=== PATIENT | female | born 1960 | race Caucasian/White ===

== ENCOUNTER 2018-09-07 11:57 | Day surgery (SDC) | payer OTHER ==
[~2018-09-07 11:57] MED LIST: INS70/30PN SC
== END 2018-09-07 22:56 | disposition home or self-care (01) ==
LOC: WOUND 11:57
DX: K06.1 Gingival enlargement (principal); G89.29 Other chronic pain; R68.84 Jaw pain; E10.9 Type 1 diabetes mellitus without complications; Z97.2 Presence of dental prosthetic device (complete) (partial); Z88.6 Allergy status to analgesic agent; Z88.8 Allergy status to other drugs, medicaments and biological substances; Z87.891 Personal history of nicotine dependence
CPT/HCPCS: G0463

== ENCOUNTER 2020-12-25 11:28 | Day surgery (SDC) | payer OTHER ==
[~2020-12-25] VITALS: Ht 162.6 cm; Wt 45.6 kg
[2020-12-25] MEDS ORDERED: NOVOLOG FL100 UNIT/3 SC (12:38)
--- NOTE | 2020-12-25 15:40 | NUR ---
12/25/20 7870 DAVID PANIAGUA REPORTED THAT PT DID NOT HAVE SEDATION.
== END 2020-12-25 14:10 | disposition home or self-care (01) ==
LOC: ORSCSDS 11:28
PROVIDERS: Ophthalmology
PROC: 08RJ3JZ Replacement of Right Lens with Synthetic Substitute, Percutaneous Approach (ICD-10-PCS; principal; 2020-12-25 13:00)
DX: H25.11 Age-related nuclear cataract, right eye (principal); I10 Essential (primary) hypertension; Z79.4 Long term (current) use of insulin; Z87.891 Personal history of nicotine dependence
CPT/HCPCS: 82947; J2001; J2250; J3010; J3301; J7040; J7120; V2632

== ENCOUNTER 2021-01-15 11:46 | Day surgery (SDC) | payer OTHER ==
[~2021-01-15] VITALS: Ht 162.6 cm; Wt 45.7 kg
[~2021-01-15 11:46] MED LIST changes: +NOVOLOG FL100 UNIT/3; +NOVOLOG FL100 UNIT/3 SC
--- NOTE | 2021-01-15 12:51 | NUR ---
01/15/21 1251 Alpa Andrew TETRACAINE DROP TO LEFT EYE AT 1242. PLEDGET TO LEFT EYE AT 1243.
--- NOTE | 2021-01-15 15:37 | NUR ---
01/15/21 1537 Linda Bradley LATE ENTRY--RECEIVED BRIEF REPORT FROM DAVINA HERNANDEZ AND ASKED TO TAKE OVER THIS PATIENT AND GIVE DISCHARGE INSTRUCTIONS. VITALS HAD BEEN TAKEN AND IV WAS DC'D BY DAVINA HERNANDEZ. PATIENT WAS DISCHARGED IN STABLE CONDITION
== END 2021-01-15 15:30 | disposition home or self-care (01) ==
LOC: ORSCSDS 11:46
PROVIDERS: Ophthalmology
PROC: 08RK3JZ Replacement of Left Lens with Synthetic Substitute, Percutaneous Approach (ICD-10-PCS; principal; 2021-01-15 13:00)
DX: H25.12 Age-related nuclear cataract, left eye (principal); I10 Essential (primary) hypertension; Z79.4 Long term (current) use of insulin
CPT/HCPCS: J2001; J3301; J7040; V2632

== ENCOUNTER 2021-12-17 14:13 | Inpatient (IN) | payer OTHER ==
[~2021-12-17] VITALS: Ht 162.6 cm; Wt 45.2 kg
[~2021-12-17 14:13] MED LIST changes: -NOVOLOG FL100 UNIT/3
[2021-12-17 14:59] LABS: BASOPHILS ABSOLUTE AUTO 0.06 K/mm3 (0.00-0.23); BASOPHILS PERCENT AUTO 1 % (0-2); EOSINOPHILS PERCENT AUTO 0 % (0-6); Hematocrit 43.8 % (33.0-51.0); Hemoglobin 15.3 g/dL (11.5-16.0); IMMATURE GRAN ABSOLUTE AUTO 0.01 K/mm3 (0.00-0.10); IMMATURE GRAN PERCENT AUTO 0 % (0-1); LYMPHOCYTES ABSOLUTE AUTO 1.52 K/mm3 (0.84-5.20); LYMPHOCYTES PERCENT AUTO 30 % (21-46); MONOCYTES ABSOLUTE AUTO 0.82 K/mm3 (0.16-1.47); MONOCYTES PERCENT AUTO 16 % (4-13); Mean Corpuscular HGB Conc 34.9 g/dL (31.5-36.5); Mean Corpuscular Volume 100 fL (80-100); Mean Platelet Volume 10.8 fL (9.1-12.4); NEUTROPHILS ABSOLUTE AUTO 2.71 K/mm3 (1.96-9.15); NEUTROPHILS PERCENT AUTO 53 % (41-73); Platelet Count 183 K/mm3 (150-400); RDW Coefficient Variation 12.1 % (11.7-14.2); RDW Standard Deviation 45.1 fL (35.1-46.3); Red Blood Cell Count 4.37 M/mm3 (3.80-5.20); White Blood Cell Count 5.12 K/mm3 (4.00-11.30)
[2021-12-17 15:39] LABS: Albumin, Blood 3.4 g/dL (3.4-5.0); Bilirubin, Total 0.5 mg/dL (0.1-1.0); Bun/Creatinine Ratio 23.8 (12.0-20.0); Calcium, Blood 10.2 mg/dL (8.5-10.1); Creatinine, Blood 0.5 mg/dL (0.40-1.00); Globulin, Blood 3.4 g/dL (2.2-4.0); Magnesium, Blood 2.8 mg/dL (1.6-2.4); Potassium, Blood 4.7 mmol/L (3.5-5.5); Total Protein, Blood 6.8 g/dL (6.4-8.2)
[2021-12-17 16:27] LABS: Influenza A, PCR NEGATIVE (NEGATIVE); Influenza B, PCR NEGATIVE (NEGATIVE); Resp Syncytial Virus, PCR NEGATIVE (NEGATIVE); SARS-Cov-2 (COVID-19) PCR, MMC NEGATIVE (NEGATIVE)
[2021-12-17] MEDS ORDERED: MONDOXYNE NL100 MG PO (19:46)
--- NOTE | 2021-12-18 03:15 | NUR ---
SHIFT SUMMARY; SHAWN ARRIVED TO UNIT APPROX 0730 FROM ER. SHE WAS AO X 4 ON ARRIVAL. SPOUSE AND DAUGHTERS ACCOMPANIED THIS PATIENT. THIS RN WENT OVER PATIENTS MEDICATIONS WITH HER AND PER PATIENT SHE ONLY TAKES INSULIN AT THIS TIME. SHE WAS INSISTANT ON USING HER INSULIN FOR HER DIABETES TYPE I. WAS NOTIFIED AND HE SAID OK TO ORDER MISC MED OK FOR HER TO USE HER OWN INSULIN. HOWEVER WHEN SPEAKING WITH THIS PATIENT SHE HAS NO SPECIFIC DOSING FOR HER INSULIN. PER PATIENT SHE TAKES WHAT SHE FEELS THAT SHE NEEDS. SHE SAYS ITS USUALLY AROUND 3 OR 4 UNITS. SHE TAKES HER BLOOD SUGAR LEVELS 10 TO 30 TIMES PER DAY. PATIENT IS INSISTANT ON USING HER NOVOLOG FLEX PEN AND DOES NOT WANT TO USE THE HOSPITAL EQUIVALENT. PER LION IN THE PHARMACY HE IS NOT COMFORTABLE WITH HER USING "WHAT SHE FEELS SHE NEEDS" HE WOULD ONLY OK IF PATIENT HAS A SET DOSE SCHEDULE. DECISION TO SPEAK WITH MD AND PATIENT IN THE AM TO TRY AND COME TO A CONSENSUS ON HER DOSING AND TO ASK TO USE HOSPITAL HUMALIN PEN PATIENT HAS BEEN USING SAME NEEDLE ON HER NOVOLOG FOR THE ENTIRE TIME SHE HAS HAD THIS PEN. PER PATIENT SHE ONLY GETS NEW NEEDLE WHEN SHE GETS A NEW PEN. SHE HAS NOT HAD ANY DIABETIC EDUCATION OR DIETARY CONSULTATIONS. CONSULT IS PLACED FOR NUTRITION TO COME SPEAK WITH HER. PATIENT IS MEDICATED X 1 WITH 25MCG FENTANYL IVP WITH GOOD RESULTS SHE IS CURRENTLY RESTING COMFORTABLY EYES CLOSED BREATING EVEN AND UNLABORED. SHE REMAINS NPO FOR SURGERY IN THE AM.
--- NOTE | 2021-12-18 09:33 | NUR ---
PHYSICIAN CONTACT PATIENT REQUESTING TO USE OWN INSULIN PEN, HOWEVER PHARMACY CONCERNED DUE TO PATIENT NOT USING SCALE, JUST DOSING UNITS SHE FEELS SHE NEEDS. TALKED WITH DR. FORRESTER ABOUT IT. PER DR. FORRESTER, PATIENT OKAY TO USE OWN INSULIN PEN AND WE WILL MONITOR SUGAR LEVELS. FINGERPRINT CLERK CONSULT IN TO TALK WITH PATIENT ABOUT DIET, INSULIN AMD DIABETES.
[2021-12-18 12:00] LABS: Source, Urine Foley catheter
[2021-12-18 12:18] LABS: Appearance, Urine Clear (Clear); Bilirubin, Urine Neg (Neg); Blood, Urine 2+ (Neg); Color, Urine Yellow (P-Yellow); Glucose Qualitative, Urine 4+ (Neg); Ketones, Urine 2+ (Neg); Leukocyte Esterase, Urine Neg (Neg); Nitrite, Urine Neg (Neg); Protein, Urine Neg (Neg); Specific Gravity, Urine 1.015 (1.003-1.022); Urobilinogen, Urine NORM (Normal)
[2021-12-18 12:35] LABS: Bacteria Few /hpf; Squamous Epithelial Cells Rare /hpf (Few); White Blood Cells, Urine Not Seen /hpf (0-5)
--- NOTE | 2021-12-18 15:26 | NUR ---
12/18/21 1526 Kat Silveira PATIENT HAD JAUREGUI IN PLACE WHEN ENTERING OR. DRAINING CLEAR YELLOW URINE.
--- NOTE | 2021-12-18 15:53 | NUR ---
TRANSFER PATIENT TAKEN FOR SURGERY AT 1330. PATIENT TRANSFERRING TO SURGICAL FLOOR AFTER. BELONGINGS SENT TO NEW ROOM. JAUREGUI PATENT AND DRAINING TO GRAVITY. FAMILY AT BEDSIDE, FOLLOWED PATIENT TO SURGERY. AWAITING CALL FROM RECIEVING NURSE FOR REPORT.
--- NOTE | 2021-12-18 18:12 | NUR ---
POST OP: REPORT RECEIVED FROM MUTUEL MACHINE OPERATOR . PT TO UNIT AT ABOUT 1715. PT IS A/O, NOTED TACHYCARDIA IN 100'S. PT DENIES CP, ANXEITY. PT RATES PAIN 3/10. DRESSING AT L HIP CDI PT ABLE TO WIGGLE TOES, PEDEL PULSE +2, DENIES N/T. LUNG SOUNDS ARE CLEAR. PT AT BEDSIDE. THERE ARE NO SYMPTOMS OF WITHDRAWAL NOTED AT THIS TIME.
--- NOTE | 2021-12-18 18:15 | NUR ---
REPORT ALSO RECEIVED FROM MEDICAL FLOOR RN SHORTLY AFTER PT'S ARRIVAL TO UNIT. PT'S BELONGINGS BROUGHT DOWN FROM MEDICAL ROOM.
--- NOTE | 2021-12-18 19:27 | NUR ---
PT CBG 260 TONIGHT. HIGH SS INSULIN CALLED FOR PT TO RECEIVE 9 UNITS REGULAR INSULIN. PT DID NOT WANT TO TAKE 9 UNITS AND WAS FEARFUL THAT SHE WOULD BE HYPOGLYCEMIC. EDUCATION GIVEN ABOUT THE IMPORTANCE OF BLOOD SUGAR CONTROL AFTER SURGERY AND THE RISKS OF POOR CONTROL OF BLOOD SUGAR. PT AGREED TO TAKE 6 UNITS INSTEAD. PT DID NOT WANT DINNER. DR. SANTOS MADE AWARE OF THIS WELL ON COMING DAVINA DU. WILL CTM
--- NOTE | 2021-12-19 03:53 | NUR ---
CALLED HOSPITALIST DUE TO PT HAVING BP OF 75/53. AT THAT TIME HE ORDERED A 500ML BOLUS, WILL ADMINISTER ONCE PHARMACY VERIFIES THE ORDER.
[2021-12-19 04:13] LABS: Hematocrit 32.9 % (33.0-51.0); Hemoglobin 10.9 g/dL (11.5-16.0); Mean Corpuscular HGB 34.5 pg (26.0-34.0); Mean Corpuscular HGB Conc 33.1 g/dL (31.5-36.5); Mean Corpuscular Volume 104 fL (80-100); Mean Platelet Volume 11.4 fL (9.1-12.4); Platelet Count 144 K/mm3 (150-400); RDW Coefficient Variation 12.2 % (11.7-14.2); RDW Standard Deviation 47.1 fL (35.1-46.3); Red Blood Cell Count 3.16 M/mm3 (3.80-5.20); White Blood Cell Count 11.16 K/mm3 (4.00-11.30)
--- NOTE | 2021-12-19 04:29 | NUR ---
500 ML BOLUS OF NS GIVEN PER MD ORDER. BP RECHECKED, 130/78. WILL CONTINUE TO MONITOR. PT REPORTS PAIN IN ABDOMEN, WARM BLANKET GIVEN.
--- NOTE | 2021-12-19 04:30 | NUR ---
SHIFT SUMMARY A/O X4- POD1 L TOTAL HIP DUE TO GROUND LEVEL FALL. AQUACEL IN PLACE, C/D/I. JAUREGUI IN PLACE, DARK YELLOW URINE DRAINING. PT DRINKING FLUIDS. PAIN IN ABDOMEN THIS AM, BUT NO PAIN MEDICATIONS GIVEN DUE TO LOW BP- WARM BLANKET APPLIED. WILL CONTINUE TO MONITOR AND REPORT TO ONCOMING RN.
[2021-12-19 04:54] LABS: Albumin, Blood 2.4 g/dL (3.4-5.0); Albumin/Globulin Ratio 0.9 (0.8-1.8); Bilirubin, Total 0.9 mg/dL (0.1-1.0); Bun/Creatinine Ratio 36.3 (12.0-20.0); Calcium, Blood 8.3 mg/dL (8.5-10.1); Creatinine, Blood 0.66 mg/dL (0.40-1.00); Globulin, Blood 2.6 g/dL (2.2-4.0); Potassium, Blood 4.2 mmol/L (3.5-5.5); Thyroid Stimulating Hormone 3.14 uIU/mL (0.360-4.800)
--- NOTE | 2021-12-19 19:01 | NUR ---
SHIFT SUMMARY PT POD #1 FOR L TOTAL HIP. AQUACEL DRESSING CDI. PT BEGAN THE SHIFT A/O X4 BUT IRRITABLE. THE SHIFT WENT ON HER MENTAL STATUS CHANGED AND SHE BECAME MORE CONFUSED. PT CRAWLED OUT OF THE CHAIR AND ONTO THE FLOOR AND FOUND CALLING OUT (SEE POST FALL ASSESSMENT). PT ADMITTED TO DRINKING ALCOHOL AND PUT ON CIWA PROTOCOL. WILL POSSIBLY DC HOME WITH HOME HEALTH WHEN ABLE.
[2021-12-20 04:18] LABS: Hematocrit 28.2 % (33.0-51.0); Mean Corpuscular HGB 35.7 pg (26.0-34.0); Mean Corpuscular HGB Conc 35.5 g/dL (31.5-36.5); Mean Corpuscular Volume 101 fL (80-100); Mean Platelet Volume 11.3 fL (9.1-12.4); Platelet Count 151 K/mm3 (150-400); RDW Coefficient Variation 11.8 % (11.7-14.2); RDW Standard Deviation 43.3 fL (35.1-46.3)
[2021-12-20 04:20] LABS: White Blood Cell Count 11.31 K/mm3 (4.00-11.30)
[2021-12-20 04:48] LABS: Albumin, Blood 2.4 g/dL (3.4-5.0); Albumin/Globulin Ratio 0.8 (0.8-1.8); Bilirubin, Total 0.9 mg/dL (0.1-1.0); Bun/Creatinine Ratio 37.1 (12.0-20.0); Calcium, Blood 8.1 mg/dL (8.5-10.1); Creatinine, Blood 0.49 mg/dL (0.40-1.00); Globulin, Blood 2.9 g/dL (2.2-4.0); Percent Saturation 9.3 % (15.0-50.0); Total Protein, Blood 5.3 g/dL (6.4-8.2)
--- NOTE | 2021-12-20 05:21 | NUR ---
SHIFT SUMMARY AT THE BEGINING OF THE SHIFT THE PATIENT WAS VERY CONFUSED AND TRYING TO GET OUT OF BED, BED ALARM WAS ON. LIBRIUM GIVEN AT THAT TIME, CIWA SCORE OF 16 AT 1926, HOSPITALIST CALLED AT THAT TIME FOR MORE MEDICATION TO CONTROL ALCOHOL WITHDRAWL. ORDER OBTAINED, SEE EMAR. PT CIWA SCORE REMAINED 8 AND UNDER THROUGHOUT THE NIGHT. LIBRIUM GIVEN AT APPROX 0430 THIS AM. PO PAIN MEDICATION GIVEN FOR PAIN. NO N/V REPORTED, TOLERATING PO INTAKE. A/O X2-3- DISORIENTED AT TIMES, PT STATES SHE HAS BEEN "WALKING AROUND THE HOUSE ALL NIGHT." THOUGH SHE HAS BEEN SLEEPING ON AND OFF AND BED ALARM HAS BEEN ON FOR PT SAFETY. PT CALLED SPOUSE SEVERAL TIMES AT APPROX 0230 AND HE CAME TO HER ROOM AT APPROX 0330. PT REFUSING SCD'S WELL POLAR PACK AND TEDS THROUGHOUT SHIFT. AMBULATED W/ MAX 2 ASSIST, FWW, AND GB TO BSC. BLADDER SCANNED AT APPROX 0000 WITH RESULT OF 426ML IN BLADDER, AT THAT TIME PT UP TO BSC AND VOIDED 150ML. PT BACK TO BED AND GOT BACK UP TO COMMODE AT 0430, PT VOIDED 400ML AT THAT TIME, AT BEDSIDE. WILL CONTINUE TO MONITOR, CALL LIGHT IN REACH.
--- NOTE | 2021-12-20 18:24 | NUR ---
SHIFT SUMMARY PT IS POD#2 FROM L HIP REPAIR. PAIN HAS BEEN DIFFICULT TO MANAGE WITH PO PAIN MEDICATION, PO PAIN MEDICATION INCREASED AND TYLENOL ADDED IN ADDITION TO OXYCODONE. PT REPORTS HER PAIN IS A 1/10 AT REST AFTER INCREASING PAIN MEDICATION. PT ATTEMPTED TO WORK WITH THERAPY BUT WAS ONLY ABLE TO SIT AT THE EDGE OF THE BED. PT WAS HAVING SOME URINARY RETENTION, BLADDER SCAN SHOWED 893ML IN HER BLADDER AND PT DECLINED THE URGE TO VOID. PT DECLINED TO GET TO THE BSC TO VOID, SHE USED THE BEDPAN, SHE WAS ABLE TO EMPTY APPROXIMATELY 600ML FROM HER BLADDER. PT WAS EDUCATED ABOUT THE IMPORTANCE OF GETTING OOB AND ENCOURAGED TO USE THE BSC INSTEAD OF THE BEDPAN AND ALSO TO SIT UP TO THE CHAIR. PT IS RECEPTIVE TO EDUCATION AT TIMES. PT'S CIWA SCORE HAS BEEN AN 8 THIS SHIFT, MANAGED WITH LIBRIUM. WILL CONTINUE TO MONITOR UNTIL REPORT TO ISMAEL RN.
--- NOTE | 2021-12-20 18:37 | NUR ---
PT DECLINED BEDSIDE REPORT.
--- NOTE | 2021-12-21 04:06 | NUR ---
SHIFT SUMMARY A/O X4 THROUGHOUT SHIFT- APPEARS TO HAVE MUCH LESS CONFUSION THIS SHIFT. POD3 L TOTAL HIP- AQUACEL C/D/I. UP TO BSC W/ 2 PERSON ASSIST, FWW, AND GB. TOLERATING PO INTAKE, VOIDING WELL THOUGH PT WAS UNABLE TO VOID AT BEGINING OF SHIFT AND BLADDER SCAN WAS PERFORMED, SHE WAS ABLE TO URINATE THIS MORNING 650ML. NO BOWEL MOVEMENT AT THIS TIME, BOWEL CARE ON BOARD. REPORTS PASSING FLATUS. PT REPORTS PAIN BETTER CONTROLLED THIS SHIFT. VITAL SIGNS STABLE. WILL CONTINUE TO MONITOR AND REPORT TO ONCOMING RN.
[2021-12-21 06:17] LABS: Hematocrit 26.4 % (33.0-51.0); Hemoglobin 9.1 g/dL (11.5-16.0); Mean Corpuscular HGB Conc 34.5 g/dL (31.5-36.5); Mean Corpuscular Volume 102 fL (80-100); Mean Platelet Volume 10.7 fL (9.1-12.4); Platelet Count 192 K/mm3 (150-400); RDW Coefficient Variation 11.7 % (11.7-14.2); RDW Standard Deviation 43.6 fL (35.1-46.3); White Blood Cell Count 9.81 K/mm3 (4.00-11.30)
[2021-12-21 06:38] LABS: Albumin, Blood 2.1 g/dL (3.4-5.0); Albumin/Globulin Ratio 0.7 (0.8-1.8); Bilirubin, Total 0.8 mg/dL (0.1-1.0); Bun/Creatinine Ratio 30.2 (12.0-20.0); Calcium, Blood 8.1 mg/dL (8.5-10.1); Creatinine, Blood 0.4 mg/dL (0.40-1.00); Globulin, Blood 2.9 g/dL (2.2-4.0); Potassium, Blood 4.1 mmol/L (3.5-5.5)
--- NOTE | 2021-12-22 04:20 | NUR ---
0420 HRS: DISCUSSED HAVING THE PATIENT ATTEMPT TO VOID AND USING BLADDER SCANNER. THE PT BECAME SLIGHTLY IRRITABLE AND REFUSED AT THIS TIME. WILL DISCUSS/TRY AGAIN WITH PATIENT LATER IN THE SHIFT.
--- NOTE | 2021-12-22 04:59 | NUR ---
SHIFT SUMMARY: PT IS A&0X4. PAIN WAS WELL MANAGED T/O THE SHIFT PER EMAR ORDERS. REPORTED MINIMAL PAIN T/O THE NIGHT. PT WAS ENCOURAGED TO ATTEMPT TO URINATE DURING THE SHIFT BUT EXPRESSED THAT SHE WOULD LET STAFF KNOW WHEN SHE NEEDED TO URINATE. DISCUSSED BLADDER SCANNING THE PATIENT AND SHE REFUSED AT THAT TIME. PT X1 AQUACEL REMAINS IN PLACE ON THE L HIP WITH VERY LIGHT EXUDATE. DENIED NAUSEA T/O THE SHIFT. PT SNACKED ON CRACKERS AND TOLERATED PO FLUIDS WELL. PT CURRENTLY RESTING AND CALL LIGHT IS WITHIN REACH.
--- NOTE | 2021-12-22 06:12 | NUR ---
0612 HRS: DISCUSSED ATTEMPTING TO USE THE BATHROOM WITH THE PT. SHE DENIED STATING THAT SHE IS TOO PAINFUL. PT WAS MEDICATED FOR PAIN PER EMAR. PT STATES SHE PREFERS TO WAIT UNTIL LATER TO ATTEMPT TO URINATE. BLADDER SCAN PERFORMED AND SHOWED 200. PT ENCOURAGED TO DRINK PO FLUIDS AND LET STAFF KNOW WHEN SHE NEEDS TO URINATE.
[2021-12-22] MEDS ORDERED: FOLI1 PO (11:05)
[2021-12-22] MEDS ORDERED: Percocet 5-3251 EACH PO (11:05)
[2021-12-22] MEDS ORDERED: B-1100 M1 PO (11:05)
[2021-12-22] MEDS ORDERED: ENOX30I SC (11:06)
[2021-12-22] MEDS ORDERED: METO25 PO (11:07)
[2021-12-22] MEDS ORDERED: CIPR500 PO (11:45)
[2021-12-22 17:10] LABS: Influenza A, PCR NEGATIVE (NEGATIVE); Influenza B, PCR NEGATIVE (NEGATIVE); Resp Syncytial Virus, PCR NEGATIVE (NEGATIVE); SARS-Cov-2 (COVID-19) PCR, MMC NEGATIVE (NEGATIVE)
--- NOTE | 2021-12-22 18:05 | NUR ---
DISCHARGE TO SNF VIA . SCRIPT SENT w/ PACKET. PT IS EMOTIONAL TODAY, BUT PLEASANT & THANKFUL. RARELY VOIDS LARGE AMOUNTS. PAIN REASONABLY CONTROLLED BUT IS REPORTING SOME DIZZINESS FROM PAIN MEDS. AQUACEL WNL TO L HIP. HEAVY ASSIST FOR TRANSFERS; PIVOT ONLY. CALLING REPORT TO .
== END 2021-12-22 17:55 | disposition home or self-care (01) | DRG 521 ==
LOC: ER 14:13 → SURS 16:28 → MEDS 16:28 → SURS 12-18 15:44
PROVIDERS: Emergency Medicine; Internal Medicine; Orthopaedic Surgery; ADMIT Internal Medicine
PROC: 0SRB0JZ Replacement of Left Hip Joint with Synthetic Substitute, Open Approach (ICD-10-PCS; 2021-12-18)
PROC: 0QS704Z Reposition Left Upper Femur with Internal Fixation Device, Open Approach (ICD-10-PCS; principal; 2021-12-18 14:00)
DX: S72.012A Unspecified intracapsular fracture of left femur, initial encounter for closed fracture (principal); E43 Unspecified severe protein-calorie malnutrition; F10.239 Alcohol dependence with withdrawal, unspecified; E87.1 Hypo-osmolality and hyponatremia; N39.0 Urinary tract infection, site not specified; Z68.1 Body mass index [BMI] 19.9 or less, adult; D64.9 Anemia, unspecified; R82.71 Bacteriuria; E86.0 Dehydration; W01.0XXA Fall on same level from slipping, tripping and stumbling without subsequent striking against object, initial encounter; Z20.822 Contact with and (suspected) exposure to COVID-19; K70.10 Alcoholic hepatitis without ascites; E10.65 Type 1 diabetes mellitus with hyperglycemia; K72.90 Hepatic failure, unspecified without coma; B96.20 Unspecified Escherichia coli [E. coli] as the cause of diseases classified elsewhere; B95.2 Enterococcus as the cause of diseases classified elsewhere; Z79.4 Long term (current) use of insulin; Z87.820 Personal history of traumatic brain injury; Z98.890 Other specified postprocedural states; Z88.8 Allergy status to other drugs, medicaments and biological substances
CPT/HCPCS: 0241U; 36415; 51702; 72170; 73502; 80053; 81001; 82728; 82947; 83036; 83540; 83550; 83735; 83880; 84443; 84484; 85025; 85027; 87077; 87086; 87186; 93005; 93010; 96374; 97110; 97116; 97161; 97530; 99285-25; A9270; C1713; C1776; J0171; J0690; J0735; J1100; J1650; J1815; J1885; J2250; J2270; J2370; J2405; J2704; J2765; J2795; J3010; J3370; J7040; J7120

== ENCOUNTER 2022-01-25 20:43 | Inpatient (IN) | payer OTHER ==
[~2022-01-25] VITALS: Ht 162.6 cm; Wt 44.8 kg
[~2022-01-25 20:43] MED LIST changes: +B-1100 M1 PO; +CIPR500 PO; +ENOX30I SC; +FOLI1 PO; +METO25 PO; +MONDOXYNE NL100 MG PO; +Percocet 5-3251 EACH PO
[2022-01-25 21:27] LABS: BASOPHILS ABSOLUTE AUTO 0.06 K/mm3 (0.00-0.23); BASOPHILS PERCENT AUTO 1 % (0-2); EOSINOPHILS ABSOLUTE AUTO 0.09 K/mm3 (0.00-0.68); EOSINOPHILS PERCENT AUTO 2 % (0-6); Hematocrit 35.7 % (33.0-51.0); Hemoglobin 11.8 g/dL (11.5-16.0); IMMATURE GRAN ABSOLUTE AUTO 0.03 K/mm3 (0.00-0.10); IMMATURE GRAN PERCENT AUTO 1 % (0-1); LYMPHOCYTES PERCENT AUTO 36 % (21-46); MONOCYTES ABSOLUTE AUTO 1.06 K/mm3 (0.16-1.47); MONOCYTES PERCENT AUTO 18 % (4-13); Mean Corpuscular HGB 33.9 pg (26.0-34.0); Mean Corpuscular HGB Conc 33.1 g/dL (31.5-36.5); Mean Corpuscular Volume 103 fL (80-100); Mean Platelet Volume 10.5 fL (9.1-12.4); NEUTROPHILS ABSOLUTE AUTO 2.51 K/mm3 (1.96-9.15); NEUTROPHILS PERCENT AUTO 43 % (41-73); Platelet Count 324 K/mm3 (150-400); RDW Coefficient Variation 13.5 % (11.7-14.2); RDW Standard Deviation 51.5 fL (35.1-46.3); Red Blood Cell Count 3.48 M/mm3 (3.80-5.20); White Blood Cell Count 5.85 K/mm3 (4.00-11.30)
[2022-01-25 21:34] LABS: Anion Gap 6 mmol/L (6-16); Blood Urea Nitrogen 12 mg/dL (8-24); Bun/Creatinine Ratio 29.8 (12.0-20.0); CO2, Blood 25 mmol/L (21-32); Calcium, Blood 8.3 mg/dL (8.5-10.1); Chloride, Blood 104 mmol/L (98-108); Glomerular Filtration Rate 113 (60-); Glucose, Blood 385 mg/dL (70-99); Magnesium, Blood 1.8 mg/dL (1.6-2.4); Potassium, Blood 3.4 mmol/L (3.5-5.5); Sodium, Blood 135 mmol/L (136-145)
[2022-01-25 22:10] LABS: Ethanol (Alcohol), Blood, Med <3 mg/dL
--- NOTE | 2022-01-26 01:03 | NUR ---
PT REQUESTS TO TAKE OWN BLOOD SUGAR WITH HOME BLOOD GLUCOSE MONITOR. 0047 RESULT WAS 208. PT ADMINISTERED 1 UNIT HOME NOVOLOG INSULIN.
--- NOTE | 2022-01-26 01:13 | NUR ---
ADMIT NEW ER ADMIT THIS SHIFT FOR A SCHEDULED LEFT FEMUR REVISION SURGERY IN THE MORNING. PT NPO AND EDUCATED ON CBG Q6H PER ORDERS. PT REPORTS SHE WANTS TO CHECK HER OWN BLOOD SUGARS AND ADMINISTER HER OWN INSULIN. VSS. PT REPORTS PAIN TOLERABLE AT THIS TIME. PT INDEPENDENTLY TRANSFERRED HERSELF FROM ER [facility] TO BED AND HAS PERSONAL W/C AT BEDSIDE. PT WANTS TO BE INDEP TO BSC. EDUCATED ON FALL RISK AND CALL FOR ASSISTANCE WHEN NEEDING TO GET OOB. PT VERB AN UNDERSTANDING. ORIENTED TO ROOM AND CALL LIGHT.
--- NOTE | 2022-01-26 04:26 | NUR ---
SHIFT SUMMARY NO ACUTE CHANGES SINCE ADMIT. NPO SINCE ARRIVAL. 1 PAIN PILL FOR PAIN MANAGEMENT. IV SL. PT INDEP TRANSFERS SELF FROM BED TO BSC TO VOID. ENCOURAGING TO USE CALL LIGHT WHEN OOB AND EDUCATING PT ABOUT FALL RISK. PLAN FOR PT TO GO TO OR THIS MORNING. CALL LIGHT WITHIN REACH.
--- NOTE | 2022-01-26 04:39 | NUR ---
PT TOOK OWN BLOOD SUGAR AT 0255 AND RESULT WAS 143.
[2022-01-26 05:11] LABS: BASOPHILS ABSOLUTE AUTO 0.06 K/mm3 (0.00-0.23); BASOPHILS PERCENT AUTO 1 % (0-2); EOSINOPHILS ABSOLUTE AUTO 0.22 K/mm3 (0.00-0.68); EOSINOPHILS PERCENT AUTO 3 % (0-6); Hematocrit 36.5 % (33.0-51.0); Hemoglobin 11.7 g/dL (11.5-16.0); IMMATURE GRAN ABSOLUTE AUTO 0.01 K/mm3 (0.00-0.10); IMMATURE GRAN PERCENT AUTO 0 % (0-1); LYMPHOCYTES ABSOLUTE AUTO 3.02 K/mm3 (0.84-5.20); LYMPHOCYTES PERCENT AUTO 46 % (21-46); MONOCYTES ABSOLUTE AUTO 1.12 K/mm3 (0.16-1.47); MONOCYTES PERCENT AUTO 17 % (4-13); Mean Corpuscular HGB Conc 32.1 g/dL (31.5-36.5); Mean Corpuscular Volume 103 fL (80-100); Mean Platelet Volume 10.6 fL (9.1-12.4); NEUTROPHILS ABSOLUTE AUTO 2.17 K/mm3 (1.96-9.15); NEUTROPHILS PERCENT AUTO 33 % (41-73); NRBC ABSOLUTE 0.04 K/mm3 (0.00-0.02); NRBC Auto 0.6 /100 WBC (0.0-0.2); Platelet Count 344 K/mm3 (150-400); RDW Coefficient Variation 13.6 % (11.7-14.2); RDW Standard Deviation 51.6 fL (35.1-46.3); Red Blood Cell Count 3.55 M/mm3 (3.80-5.20)
[2022-01-26 06:01] LABS: Bun/Creatinine Ratio 27.3 (12.0-20.0); Calcium, Blood 8.8 mg/dL (8.5-10.1); Creatinine, Blood 0.4 mg/dL (0.40-1.00); Potassium, Blood 2.9 mmol/L (3.5-5.5)
--- NOTE | 2022-01-26 06:15 | NUR ---
PT TO DAY SURGERY AT THIS TIME.
--- NOTE | 2022-01-26 11:10 | NUR ---
THE PATIENT WAS BROUGHT TO DAY SURGERY FOR HER PROCEDURE.
--- NOTE | 2022-01-26 13:42 | NUR ---
01/26/22 1342 Rodri Josue BLOOD SUGAR TAKEN AT 1337 BY ORD.DXS USING SECOND TOE ON RIGHT FOOT. 246.
--- NOTE | 2022-01-26 15:45 | NUR ---
PT OUT OF CONTROL. MOANING, CRYING BUT NO TEARS, RESTLESS, NON-COOPERATIVE. PT TREATED FOR PAIN. ANGRY WITH THIS RN FOR TYPING. CONSULTED WITH DR. PLATA ACP, VO FOR 2MG IV VERSED X1 FOR ANXIETY. PT MEDICATED AT 1540. SHORTLY AFTER, PT DESATURATED AND OBSTRUCTED. O2 10L NON-REBREATHER ON AND JAW THRUST PROVIDED. SATS BACK UP TO 100%. PT NOW SLEEPING. VSS. WILL CONTINUE TO MONITOR.
--- NOTE | 2022-01-26 16:01 | NUR ---
2200 OF LR GIVEN TOTAL FROM OR AND PACU, BLOOD LOSS ESTIMATED TO BE 400, NO JAUREGUI, BLADDER SCANNED @1540, 290ML SHOWN
--- NOTE | 2022-01-26 18:36 | NUR ---
SHIFT SUMMARY PATIENT ALERT, ANXIOUS, AND PARANOID THROUGHOUT SHIFT. WENT FOR LEFT HIP REVISION WITH DR SANTOS. RETURNED TO ROOM AT 1630 MOANING IN PAIN, ANXIOUS. MEDICATED WITH DILAUDID AND PHENERGAN AND PATIENT IS NOW SLEEPING. CONT BIOX ON, 2L O2 VIA NC, SATS AT 100%. AQUACEL TO LEFT HIP C/D/I. IV FLUID RUNNING. SPOUSE PRESENT DURING MOST OF DAY. PLAN TO START PHYSICAL THERAPY TOMORROW.
--- NOTE | 2022-01-26 21:14 | NUR ---
PT EASILY AWAKENED FROM SLEEPING, BUT IS CONFUSED, AGITATED, AND UNCOOPERATIVE WITH SOME CARE. VS TAKEN, BUT PT UNABLE TO KEEP ARM STILL DURING BP. PT VERBALIZED SHE NEEDED TO VOID. OFFERED TO PLACE PT ON BED CERDA SINCE PT UNABLE TO MOBILIZE LEFT LEG POST OP. PT REFUSED AND TOLD STAFF TO "GET OUT OF MY ROOM". PT STILL ATTEMPTING TO GET OOB, BUT UNABLE TO MOVE THAT LEFT LEG. OFFERRED TO HELP PT TO BEDSIDE COMMODE. EDUCATED PT ON SAFETY OF GETTING OUT OF BED WITH STAFF ASSISTANCE AND PROTECTING THAT POST OP LEFT LEG. PT REFUSED AND CONTINUED TO YELL AND USE ABUSIVE LANGUAGE TOWARDS STAFF. PT THINKS WE ARE HER FAMILY MEMBERS AND IS UNAWARE SHE IS AT THE HOSPITAL. REORIENTED PT. PT DID ALLOW THIS RN TO CHECK CBG AND ADMINISTER INSULIN PER ORDERS. PT FELL ASLEEP QUICKLY AFTER THAT. SIDE RAILS UP X3, BED IN LOW POSITION, AND BED ALARM IN PLACE FOR SAFETY. CALL LIGHT WITHIN REACH. WILL CONT TO MONITOR. ATTEMPTED TO CALL PT'S X2 TO UPDATE ON MENTAL STATUS/BEHAVIOR AND TO SEE IF TALKING TO HER ON THE PHONE WOULD CALM HER DOWN. DID NOT ANSWER PHONE CALL.
--- NOTE | 2022-01-26 21:48 | NUR ---
PT BED ALARM WENT OFF. UPON ENTERING ROOM, PT SITTING ON SIDE OF BED TAKING HER GOWN OFF AND ALMOST PULLING OUT HER IV. WAS ABLE TO ASSIST PT IN TAKING GOWN OFF AND DISCONNECTING IV WITHOUT IT BEING PULLED OUT. PT DEMANDING STAFF TO GET HER PAJAMAS ON. PT WAS ABLE TO INDEP PUT SHIRT ON. PT THEN STOOD UP WITHOUT GAIT BELT ON, NONSKID SOCKS ON, AND WITHOUT WALKER. INSTRUCTED PT TO SIT BACK ON BED FOR SAFETY REASONS AND RISK TO FALL. PT REFUSED AND CONTINUED TO GET SELF ONTO BEDSIDE COMMODE. PT ABLE TO VOID. PT YELLING AT STAFF TO GET HER UNDERWEAR ON AND PAJAMA PANTS ON. THIS RN ASSISTED PT IN DRESSING. PT THEN STOOD UP AGAINST INSTRUCTIONS TO WAIT FOR WALKER, GAIT BELT, AND SOCKS. PT WEAK AND UNSTEADY ON HER FEET AND THIS RN TOLD HER TO SIT BACK DOWN ONTO THE CLOSED COMMODE. PT VERY UPSET AND VERBALIZED SHE WANTS HER PHONE TO CALL HER . PHONE HANDED TO PT AND PT THREW IT ON HER BED. PT YELLING THAT STAFF NOT ALLOWING HER TO GET BACK INTO THE BED "HER WAY". CONTINUED TO EDUCATE PT ON POST OP PRECAUTIONS AND SAFETY/FALL RISK PRECAUTIONS. PT INTERRUPTING AND CALLING STAFF "IDIOTS" AND USING FOUL LANGUAGE. PT REFUSED TO GET BACK INTO BED AND WILL NOT LEAVE THE BSC. THIS RN STATED THAT STAFF WILL STAY IN ROOM WITH HER TO KEEP HER SAFE FROM FALLING AND UNTIL SHE IS SAFELY BACK TO BED. PT APPEARS TO BE PARANOID AND IS CONFUSED STATING SHE IS AT HER HOME AMD WE ARE WANTING TO "KILL HER". CONTINUING TO REORIENT PT. THIS RN AT BEDSIDE WITH PT.
--- NOTE | 2022-01-26 22:58 | NUR ---
HOSPITALIST NOTIFED OF AGITATED BEHAVIOR. ORDER FOR KERLINE PLACED. 3 STAFF MEMBERS TO ASSIST WITH MEDICATION ADMINISTRATION. PT BACK TO BED AND REPOSITIONED SUPINE. OFFERED EXTRA PILLOWS AND BLANKETS AND PT DECLINED. SIDE RAILS UP X3, BED IN LOW POSITION, TAB ALARM IN PLACE.
--- NOTE | 2022-01-27 06:08 | NUR ---
PT SPOUSE CAME IN AT APPROX 0430. UPDATED SPOUSE ON PT MENTATION/BEHAVIOR/ AND TREATMENT PLAN FOR REST OF SHIFT. SPOUSE VERY APOLOGETIC. PT VERY PARANOID/AGITATED/ANGRY WHEN IN ROOM EDUCATING PT ON MEDICATIONS AND TREATMENT PLAN. CONTINUED TO REFUSE MEDICATIONS AND CARE. THIS RN LEFT ROOM AND SPOUSE CAME OUT TO TELL ME SHE NEEDED TO USE THE BEDSIDE COMMODE. UPON ENTERING ROOM, PT VERBALIZED SHE HAD VOIDED IN HER PANTS AND IN THE BED. THIS RN EDUCATED PT THAT WE NEEDED TO CLEAN HER UP AND GET HER INTO CLEAN CLOTHES WITH NEW LINENS TO PREVENT INCISION INFECTION. PT REFUSED TO GET OOB AND SPOUSE WAS ABLE TO CONVINCE HER TO COOPERATE. 2 MAX ASSIST TO BSC. SOILED CLOTHING REMOVED FROM PT AND SKIN CLEANSED. AQUACEL DRESSING TO LEFT HIP NOTED TO BE SATURATED WITH MODERATE RED DRAINAGE. NEW DRESSING APPLIED. PT DRESSED WITH CLEAN CLOTHES AND LINENS CHANGED. PT BACK TO BED AND REPOSITIONED. PT VERBALIZED PAIN. THIS RN OFFERED PAIN MEDICATIONS. PT AGREED. THIS RN SHOWED PT MEDICATION PACKAGING AND LABELS BEFORE ADMINISTRATION. PT WAS THEN COOPERATIVE WITH OBTAINING VS. SPOUSE LEFT TO GO BACK HOME. OFFERED PT A SNACK AND BROUGHT HER A SANDWICH AND APPLESAUCE WHICH APPEARED TO MAKE HER HAPPY. PT DENIED ANY OTHER NEEDS. CALL LIGHT WITHIN REACH.
--- NOTE | 2022-01-27 06:28 | NUR ---
PT REFUSED MORNING LABS.
[2022-01-27 08:07] LABS: BASOPHILS ABSOLUTE AUTO 0.04 K/mm3 (0.00-0.23); BASOPHILS PERCENT AUTO 0 % (0-2); EOSINOPHILS PERCENT AUTO 0 % (0-6); IMMATURE GRAN ABSOLUTE AUTO 0.06 K/mm3 (0.00-0.10); IMMATURE GRAN PERCENT AUTO 0 % (0-1); LYMPHOCYTES ABSOLUTE AUTO 2.12 K/mm3 (0.84-5.20); LYMPHOCYTES PERCENT AUTO 14 % (21-46); MONOCYTES ABSOLUTE AUTO 1.69 K/mm3 (0.16-1.47); MONOCYTES PERCENT AUTO 11 % (4-13); Mean Corpuscular HGB 34.6 pg (26.0-34.0); Mean Corpuscular HGB Conc 33.3 g/dL (31.5-36.5); Mean Corpuscular Volume 104 fL (80-100); Mean Platelet Volume 10.6 fL (9.1-12.4); NEUTROPHILS ABSOLUTE AUTO 10.91 K/mm3 (1.96-9.15); NEUTROPHILS PERCENT AUTO 74 % (41-73); Platelet Count 299 K/mm3 (150-400); RDW Coefficient Variation 13.8 % (11.7-14.2); RDW Standard Deviation 52.5 fL (35.1-46.3); White Blood Cell Count 14.82 K/mm3 (4.00-11.30)
[2022-01-27 08:31] LABS: Albumin, Blood 2.4 g/dL (3.4-5.0); Bun/Creatinine Ratio 28.5 (12.0-20.0); Calcium, Blood 8.5 mg/dL (8.5-10.1); Creatinine, Blood 0.53 mg/dL (0.40-1.00); Potassium, Blood 3.4 mmol/L (3.5-5.5); Prealbumin, Blood 10.3 mg/dL (20.0-40.0)
[2022-01-27] MEDS ORDERED: ASPI81CH PO (09:46)
--- NOTE | 2022-01-27 11:05 | NUR ---
DISCHARGE SUMMARY PT UNCOOPERATIVE WITH CARE AT MOST TIMES. PT AGREEABLE TO WORK WITH PHYSICAL AND OCCUPATIONAL THERAPY AND THEY WERE AGREEABLE THAT HOME WITH HOME HEALTH IS BEST. PT NOT COOPERATIVE WITH FALL PRECAUTIONS AND MEDICATIONS. PT DISCHARGED HOME WITH .
== END 2022-01-27 10:35 | disposition home health service (06) | DRG 466 ==
LOC: ER 20:43 → SURS 22:25
PROVIDERS: Emergency Medicine; Orthopaedic Surgery; ADMIT Internal Medicine
PROC: 0SPS0JZ Removal of Synthetic Substitute from Left Hip Joint, Femoral Surface, Open Approach (ICD-10-PCS; 2022-01-26)
PROC: 0QS704Z Reposition Left Upper Femur with Internal Fixation Device, Open Approach (ICD-10-PCS; 2022-01-26)
PROC: 0SRS0JZ Replacement of Left Hip Joint, Femoral Surface with Synthetic Substitute, Open Approach (ICD-10-PCS; principal; 2022-01-26 12:30)
DX: S72.002A Fracture of unspecified part of neck of left femur, initial encounter for closed fracture (principal); E43 Unspecified severe protein-calorie malnutrition; M97.02XA Periprosthetic fracture around internal prosthetic left hip joint, initial encounter; Z68.1 Body mass index [BMI] 19.9 or less, adult; E87.6 Hypokalemia; E10.65 Type 1 diabetes mellitus with hyperglycemia; F10.11 Alcohol abuse, in remission; M81.0 Age-related osteoporosis without current pathological fracture; Z96.642 Presence of left artificial hip joint; F60.9 Personality disorder, unspecified; W19.XXXA Unspecified fall, initial encounter; Z79.4 Long term (current) use of insulin; Z98.890 Other specified postprocedural states; Z88.8 Allergy status to other drugs, medicaments and biological substances; Z87.820 Personal history of traumatic brain injury; Z79.891 Long term (current) use of opiate analgesic
CPT/HCPCS: 36415; 72170; 80048; 82040; 82947; 83735; 84134; 84238; 85025; 93005; 93010; 94762; 97110; 97116; 97162; 97166; 97530; 97535; 99285-25; A9270; C1776; G0480; J0171; J0690; J0735; J1100; J1170; J1815; J1885; J2250; J2370; J2405; J2550; J2704; J2795; J3010; J3480; J3486; J7050; J7120

== ENCOUNTER 2022-02-11 07:04 | Observation (INO) | payer OTHER ==
[~2022-02-11 07:04] MED LIST changes: +ASPI81CH PO
[2022-02-11 08:11] LABS: BASOPHILS ABSOLUTE AUTO 0.07 K/mm3 (0.00-0.23); BASOPHILS PERCENT AUTO 1 % (0-2); EOSINOPHILS ABSOLUTE AUTO 0.15 K/mm3 (0.00-0.68); EOSINOPHILS PERCENT AUTO 3 % (0-6); Hematocrit 30.2 % (33.0-51.0); Hemoglobin 10.2 g/dL (11.5-16.0); IMMATURE GRAN ABSOLUTE AUTO 0.01 K/mm3 (0.00-0.10); IMMATURE GRAN PERCENT AUTO 0 % (0-1); LYMPHOCYTES ABSOLUTE AUTO 1.48 K/mm3 (0.84-5.20); LYMPHOCYTES PERCENT AUTO 30 % (21-46); MONOCYTES PERCENT AUTO 27 % (4-13); Mean Corpuscular HGB 33.2 pg (26.0-34.0); Mean Corpuscular HGB Conc 33.8 g/dL (31.5-36.5); Mean Corpuscular Volume 98 fL (80-100); Mean Platelet Volume 9.8 fL (9.1-12.4); NEUTROPHILS ABSOLUTE AUTO 1.87 K/mm3 (1.96-9.15); NEUTROPHILS PERCENT AUTO 38 % (41-73); Platelet Count 448 K/mm3 (150-400); RDW Coefficient Variation 15.4 % (11.7-14.2); RDW Standard Deviation 55.8 fL (35.1-46.3); Red Blood Cell Count 3.07 M/mm3 (3.80-5.20); White Blood Cell Count 4.88 K/mm3 (4.00-11.30)
[2022-02-11 08:36] LABS: C-REACTIVE PROTEIN, EXT RANGE 6.43 mg/dL (0.000-0.300)
[2022-02-11 08:38] LABS: Albumin, Blood 2.4 g/dL (3.4-5.0); Albumin/Globulin Ratio 0.7 (0.8-1.8); Bilirubin, Total 0.4 mg/dL (0.1-1.0); Bun/Creatinine Ratio 32.7 (12.0-20.0); Calcium, Blood 8.7 mg/dL (8.5-10.1); Creatinine, Blood 0.4 mg/dL (0.40-1.00); Globulin, Blood 3.3 g/dL (2.2-4.0); Potassium, Blood 3.2 mmol/L (3.5-5.5); Total Protein, Blood 5.7 g/dL (6.4-8.2)
--- NOTE | 2022-02-11 09:45 | NUR ---
02/11/22 0945 Rodri Josue PREOPERATIVE VANCOMYCIN STARTED AT 0918
--- NOTE | 2022-02-11 13:33 | NUR ---
DISCHARGE SUMMARY PT ARRIVED TO THE FLOOR FROM PACU A/OX4, RESPONDING VERBALLY AND APPROPRIATELY, HEMOVAC IN PLACE ON L HIP FROM OR, PT AND EDUCATED ON HOW TO MANAGE IT OVER THE WEEKED AND A FOLLOW UP ON TUESDAY, DRESSING IN PLACE BUT BECAME LOOSE AND PULLED AWAY ON THE MEDIAL ANTERIOR SIDE. DRESSING REPLACED WITH COMPRESSION TAPE AND FRESH GAUZE, HEMOVAC EMPTIED BUT ONLY HAD ABOUT 10 ML SS DRAINAGE. PT AND EDUCATED ON HOME CARE, FOLLOW UP AND MEDICATIONS, PT REPORTED CONCERNS WITH HER PRESCRIVED NARCOTIC REPORTING IT DIDN'T WORK FOR HER PAIN BUT ALSO REPORTED THAT SHE HAD PERCOCET THAT A FRIEND HAD GIVEN HER. IV ACCESS REMOVED PRIOR TO DISCHARGE WITH CATHETER TIP INTACT. NO QUESTIONS AT TIME OF DISCHARGE. PT ESCORTED OUT VIA WC BY HER TO GO HOME.
== END 2022-02-11 13:30 | disposition home or self-care (01) ==
LOC: SURS 07:04
PROVIDERS: ADMIT Orthopaedic Surgery
PROC: 0KBP0ZZ Excision of Left Hip Muscle, Open Approach (ICD-10-PCS; principal; 2022-02-11 09:00)
DX: M96.840 Postprocedural hematoma of a musculoskeletal structure following a musculoskeletal system procedure (principal); M96.842 Postprocedural seroma of a musculoskeletal structure following a musculoskeletal system procedure; Y83.8 Other surgical procedures as the cause of abnormal reaction of the patient, or of later complication, without mention of misadventure at the time of the procedure; E11.9 Type 2 diabetes mellitus without complications; E46 Unspecified protein-calorie malnutrition; Z91.199 Patient's noncompliance with other medical treatment and regimen due to unspecified reason
CPT/HCPCS: 80053; 82947; 85025; 85651; 86140; 87070; 87075; 87077; 87102; 87186; 87205; G0378; J0690; J1100; J1170; J2405; J2704; J3010; J3370

== ENCOUNTER 2022-02-19 13:06 | Day surgery (SDC) | payer OTHER ==
[2022-02-19] MEDS ORDERED: IBUP200 PO (17:51)
[2022-02-19] MEDS ORDERED: CEFTRIAXON1 GM/50 M1 IV (17:51)
== END 2022-02-19 17:40 | disposition home or self-care (01) ==
LOC: ATC 13:06
DX: T84.50XA Infection and inflammatory reaction due to unspecified internal joint prosthesis, initial encounter (principal); M96.840 Postprocedural hematoma of a musculoskeletal structure following a musculoskeletal system procedure
CPT/HCPCS: 96374; C1751; J0696

== ENCOUNTER 2022-02-20 15:20 | Day surgery (SDC) | payer OTHER ==
[~2022-02-20 15:20] MED LIST changes: +CEFTRIAXON1 GM/50 M1 IV; +IBUP200 PO
== END 2022-02-20 15:35 | disposition home or self-care (01) ==
LOC: ATC 15:20
DX: T84.50XA Infection and inflammatory reaction due to unspecified internal joint prosthesis, initial encounter (principal); M96.840 Postprocedural hematoma of a musculoskeletal structure following a musculoskeletal system procedure; E11.9 Type 2 diabetes mellitus without complications; Z88.8 Allergy status to other drugs, medicaments and biological substances; Z79.4 Long term (current) use of insulin
CPT/HCPCS: 96374; J0696

== ENCOUNTER 2022-02-21 15:24 | Day surgery (SDC) | payer OTHER | END 2022-02-21 15:38 | disposition home or self-care (01) | LOC: ATC 15:24 | DX: T84.50XA Infection and inflammatory reaction due to unspecified internal joint prosthesis, initial encounter (principal); M96.840 Postprocedural hematoma of a musculoskeletal structure following a musculoskeletal system procedure; E11.9 Type 2 diabetes mellitus without complications; Z88.8 Allergy status to other drugs, medicaments and biological substances | CPT/HCPCS: 96374; J0696 ==

== ENCOUNTER 2022-02-23 01:26 | Day surgery (SDC) | payer OTHER | END 2022-02-23 16:33 | disposition home or self-care (01) | LOC: ATC 01:26 | DX: T84.52XA Infection and inflammatory reaction due to internal left hip prosthesis, initial encounter (principal); Y79.2 Prosthetic and other implants, materials and accessory orthopedic devices associated with adverse incidents; M96.840 Postprocedural hematoma of a musculoskeletal structure following a musculoskeletal system procedure | CPT/HCPCS: 36569; 96374; C1751; J0696 ==

== ENCOUNTER 2022-02-24 06:01 | Day surgery (SDC) | payer OTHER ==
--- NOTE | 2022-02-24 16:17 | NUR ---
Pt and are asking about IV rocephin for tomorrow. Dima is scheduled for an I&D tomorow in day surg (02/25/22). Spoke with Felice, day surg recharger. Felice states that they will be giving Butchlyn 2 antibiotics tomorrow and that she will not need to come to the [facility] for rocephin tomorrow. Dmitriyn will resume coming to the [facility] on Tuesday for rocephin.
== END 2022-02-24 15:40 | disposition home or self-care (01) ==
LOC: ATC 06:01
DX: T84.50XA Infection and inflammatory reaction due to unspecified internal joint prosthesis, initial encounter (principal); M96.840 Postprocedural hematoma of a musculoskeletal structure following a musculoskeletal system procedure
CPT/HCPCS: 96374; J0696

== ENCOUNTER 2022-02-25 11:08 | Inpatient (IN) | payer OTHER ==
[~2022-02-25] VITALS: Ht 162.6 cm; Wt 49.7 kg
[2022-02-25 13:06] LABS: BASOPHILS ABSOLUTE AUTO 0.08 K/mm3 (0.00-0.23); BASOPHILS PERCENT AUTO 1 % (0-2); EOSINOPHILS ABSOLUTE AUTO 0.22 K/mm3 (0.00-0.68); EOSINOPHILS PERCENT AUTO 4 % (0-6); Hematocrit 26.4 % (33.0-51.0); Hemoglobin 8.8 g/dL (11.5-16.0); IMMATURE GRAN PERCENT AUTO 0 % (0-1); LYMPHOCYTES ABSOLUTE AUTO 2.41 K/mm3 (0.84-5.20); LYMPHOCYTES PERCENT AUTO 40 % (21-46); MONOCYTES ABSOLUTE AUTO 1.35 K/mm3 (0.16-1.47); MONOCYTES PERCENT AUTO 23 % (4-13); Mean Corpuscular HGB Conc 33.3 g/dL (31.5-36.5); Mean Corpuscular Volume 96 fL (80-100); NEUTROPHILS ABSOLUTE AUTO 1.93 K/mm3 (1.96-9.15); NEUTROPHILS PERCENT AUTO 32 % (41-73); Platelet Count 403 K/mm3 (150-400); RDW Coefficient Variation 15.6 % (11.7-14.2); RDW Standard Deviation 54.9 fL (35.1-46.3); Red Blood Cell Count 2.75 M/mm3 (3.80-5.20); White Blood Cell Count 5.99 K/mm3 (4.00-11.30)
--- NOTE | 2022-02-25 13:10 | NUR ---
History, Chart, Medications and Allergies reviewed before start of procedure. Patient confirms NPO status and agrees with scheduled surgery. PT BELONGINGS PL[facility]ED [facility] SAFE[facility]. Pre-Op teaching done. Pt verbalizes understanding.
[2022-02-25 13:28] LABS: Albumin, Blood 2.4 g/dL (3.4-5.0); Albumin/Globulin Ratio 0.9 (0.8-1.8); Bilirubin, Total 0.2 mg/dL (0.1-1.0); Bun/Creatinine Ratio 48.6 (12.0-20.0); Calcium, Blood 8.4 mg/dL (8.5-10.1); Creatinine, Blood 0.45 mg/dL (0.40-1.00); Globulin, Blood 2.7 g/dL (2.2-4.0); Potassium, Blood 3.2 mmol/L (3.5-5.5); Total Protein, Blood 5.1 g/dL (6.4-8.2)
--- NOTE | 2022-02-26 00:18 | NUR ---
INSULIN: PT REFUSING TO TAKE PROVIDED INSULIN WHEN NEEDED. PT REPORTS THAT SHE WILL ALLOW STAFF TO TAKE HER BLOOD SUGAR BUT SHE DOES NOT WANT STAFF GIVING HER ANY INSULIN DUE TO "PAST EXPERIENCES." PT PROVIDED EDUCATION ABOUT NOT TAKING HOME MEDICATION AND ENCOURAGED TO TAKE SCHEDULED/ORDERED INSULIN FROM THE HOSPITAL. PT HAS HOME KIT AND TAKES HER OWN BLOOD GLUCOSE READINGS AND HAS BEEN ADMINISTERING HER OWN INSULIN.
[2022-02-26 04:46] LABS: BASOPHILS ABSOLUTE AUTO 0.01 K/mm3 (0.00-0.23); BASOPHILS PERCENT AUTO 0 % (0-2); EOSINOPHILS PERCENT AUTO 0 % (0-6); Hematocrit 22.2 % (33.0-51.0); Hemoglobin 7.5 g/dL (11.5-16.0); IMMATURE GRAN ABSOLUTE AUTO 0.01 K/mm3 (0.00-0.10); IMMATURE GRAN PERCENT AUTO 0 % (0-1); LYMPHOCYTES ABSOLUTE AUTO 1.31 K/mm3 (0.84-5.20); LYMPHOCYTES PERCENT AUTO 23 % (21-46); MONOCYTES ABSOLUTE AUTO 1.03 K/mm3 (0.16-1.47); MONOCYTES PERCENT AUTO 18 % (4-13); Mean Corpuscular HGB 31.5 pg (26.0-34.0); Mean Corpuscular HGB Conc 33.8 g/dL (31.5-36.5); Mean Corpuscular Volume 93 fL (80-100); Mean Platelet Volume 10.5 fL (9.1-12.4); NEUTROPHILS ABSOLUTE AUTO 3.33 K/mm3 (1.96-9.15); NEUTROPHILS PERCENT AUTO 59 % (41-73); Platelet Count 368 K/mm3 (150-400); RDW Coefficient Variation 15.5 % (11.7-14.2); RDW Standard Deviation 52.6 fL (35.1-46.3); Red Blood Cell Count 2.38 M/mm3 (3.80-5.20); White Blood Cell Count 5.69 K/mm3 (4.00-11.30)
[2022-02-26 05:04] LABS: Bun/Creatinine Ratio 38.9 (12.0-20.0); C-REACTIVE PROTEIN, EXT RANGE 0.625 mg/dL (0.000-0.300); Calcium, Blood 8.7 mg/dL (8.5-10.1); Creatinine, Blood 0.57 mg/dL (0.40-1.00); Potassium, Blood 3.4 mmol/L (3.5-5.5)
--- NOTE | 2022-02-26 05:57 | NUR ---
PROVIDER CONTACT: UPDATED PROVIDER ON THE PATIENT USING HER OWN INSULIN AND REFUSING INSULIN PROVIDED WHILE SHE IS ADMITTED. PROVIDER AWARE. NO NEW ORDERS OR PLANS AT THIS TIME.
--- NOTE | 2022-02-26 06:00 | NUR ---
SHIFT SUMMARY: PODx1 I&D L HIP. PT TOLERATING PO FLUIDS AND FOOD AT THIS TIME. AMBULATING TO THE BATHROOM WITH NURSE ASSIST. WOUND VAC IN PLACE ON LEFT HIP AND SETTING IS AT 120. DISCUSSED INSULIN USE WITH PT AND EDUCATED HER ON PROPER SAFE AMBULATION. PROVIDER NOTIFIED REGARDING PT OWN INSULIN USE. PLANS TO GET HOME WOUND VAC TODAY. PT RESTING AT THIS TIME, CALL LIGHT IS IN REACH.
--- NOTE | 2022-02-26 11:03 | NUR ---
0705-[facility] report from previous shift rn, pt sleeping in room, call light within reach, bed in lowest position 0820-pt refused OT 0910-pt reconsidered OT therapy, will work with OT 1015-pt working with PT 1055-pt and would like to know if she has been approved for home wound vac yet, this rn relayed that care management is working on approval; pt and asked about daily antibiotics, checked with infusion clinic and pharmacy, requesting orders to give on the floor
--- NOTE | 2022-02-26 16:22 | NUR ---
care managment RN provided access to home wound vac, nursing staff provided pt and family instruction on its use, stated understanding by pt and family. No peripheral IV to remove. pt's transported pt to awaiting vehicle. Pt will transfer to awaiting vehicle via wheelchair after discharge instructions provided.
== END 2022-02-26 16:31 | disposition home or self-care (01) | DRG 467 ==
LOC: SURS 11:08 → PRE IP 12:30 → SURS 16:37
PROVIDERS: Anesthesiology; ADMIT Orthopaedic Surgery
PROC: 0SPB09Z Removal of Liner from Left Hip Joint, Open Approach (ICD-10-PCS; 2022-02-25)
PROC: 0SPS0JZ Removal of Synthetic Substitute from Left Hip Joint, Femoral Surface, Open Approach (ICD-10-PCS; 2022-02-25)
PROC: 0SUE09Z Supplement Left Hip Joint, Acetabular Surface with Liner, Open Approach (ICD-10-PCS; 2022-02-25)
PROC: 0SRS0JZ Replacement of Left Hip Joint, Femoral Surface with Synthetic Substitute, Open Approach (ICD-10-PCS; principal; 2022-02-25 12:30)
DX: T84.52XA Infection and inflammatory reaction due to internal left hip prosthesis, initial encounter (principal); T81.32XA Disruption of internal operation (surgical) wound, not elsewhere classified, initial encounter; Y83.1 Surgical operation with implant of artificial internal device as the cause of abnormal reaction of the patient, or of later complication, without mention of misadventure at the time of the procedure
CPT/HCPCS: 36415; 72170; 80048; 80053; 82947; 85025; 85651; 86140; 97110; 97161; A9270; C1713; C1776; J0690; J0696; J1100; J1885; J2250; J2405; J2704; J3010; J3370; J7120

== ENCOUNTER 2022-02-27 15:49 | Day surgery (SDC) | payer OTHER | END 2022-02-27 16:15 | disposition home or self-care (01) | LOC: ATC 15:49 | DX: T84.50XA Infection and inflammatory reaction due to unspecified internal joint prosthesis, initial encounter (principal); M96.840 Postprocedural hematoma of a musculoskeletal structure following a musculoskeletal system procedure | CPT/HCPCS: J0696 ==

== ENCOUNTER 2022-02-28 01:15 | Day surgery (SDC) | payer OTHER | END 2022-02-28 15:41 | disposition home or self-care (01) | LOC: ATC 01:15 | DX: T84.54XA Infection and inflammatory reaction due to internal left knee prosthesis, initial encounter (principal); M96.840 Postprocedural hematoma of a musculoskeletal structure following a musculoskeletal system procedure | CPT/HCPCS: 96374; J0696 ==

== ENCOUNTER 2022-03-01 00:22 | Day surgery (SDC) | payer OTHER | END 2022-03-01 16:25 | disposition home or self-care (01) | LOC: ATC 00:22 | DX: T84.54XA Infection and inflammatory reaction due to internal left knee prosthesis, initial encounter (principal); M96.840 Postprocedural hematoma of a musculoskeletal structure following a musculoskeletal system procedure | CPT/HCPCS: 96374; J0696 ==

== ENCOUNTER → 2022-03-05 | Outpatient (CLI) | payer OTHER ==
[2022-03-05 18:56] LABS: Hematocrit 23.2 % (33.0-51.0); Hemoglobin 7.6 g/dL (11.5-16.0); Mean Corpuscular HGB 30.3 pg (26.0-34.0); Mean Corpuscular HGB Conc 32.8 g/dL (31.5-36.5); Mean Corpuscular Volume 92 fL (80-100); Mean Platelet Volume 10.4 fL (9.1-12.4); Platelet Count 440 K/mm3 (150-400); RDW Standard Deviation 54.6 fL (35.1-46.3); Red Blood Cell Count 2.51 M/mm3 (3.80-5.20); White Blood Cell Count 6.26 K/mm3 (4.00-11.30)
== END | disposition home or self-care (01) ==
LOC: LAB 18:00 → LAB SHORT 18:00
PROVIDERS: Registered Nurse
DX: S72.142D Displaced intertrochanteric fracture of left femur, subsequent encounter for closed fracture with routine healing (principal); E10.9 Type 1 diabetes mellitus without complications; R78.81 Bacteremia
CPT/HCPCS: 85027

== ENCOUNTER 2022-03-09 00:47 | Day surgery (SDC) | payer OTHER | END 2022-03-09 16:24 | disposition home or self-care (01) | LOC: ATC 00:47 | DX: T84.52XA Infection and inflammatory reaction due to internal left hip prosthesis, initial encounter (principal); M96.840 Postprocedural hematoma of a musculoskeletal structure following a musculoskeletal system procedure; E10.9 Type 1 diabetes mellitus without complications; Z88.8 Allergy status to other drugs, medicaments and biological substances; Z79.4 Long term (current) use of insulin | CPT/HCPCS: 99212 ==

== ENCOUNTER → 2022-03-24 | Outpatient (CLI) | payer OTHER ==
[2022-03-24 10:50] LABS: Hematocrit 25.9 % (33.0-51.0); Hemoglobin 8.3 g/dL (11.5-16.0); Mean Corpuscular HGB 26.9 pg (26.0-34.0); Mean Corpuscular Volume 84 fL (80-100); Mean Platelet Volume 10.8 fL (9.1-12.4); Platelet Count 539 K/mm3 (150-400); RDW Coefficient Variation 17.2 % (11.7-14.2); Red Blood Cell Count 3.08 M/mm3 (3.80-5.20); White Blood Cell Count 5.63 K/mm3 (4.00-11.30)
[2022-03-24 12:12] LABS: Bun/Creatinine Ratio 38.6 (12.0-20.0); C-REACTIVE PROTEIN, EXT RANGE 0.784 mg/dL (0.000-0.300); Calcium, Blood 8.4 mg/dL (8.5-10.1); Creatinine, Blood 0.49 mg/dL (0.40-1.00); Potassium, Blood 4.4 mmol/L (3.5-5.5)
== END | disposition home or self-care (01) ==
LOC: LAB SHORT 09:15
PROVIDERS: Registered Nurse
DX: Z45.2 Encounter for adjustment and management of vascular access device (principal); T81.31XA Disruption of external operation (surgical) wound, not elsewhere classified, initial encounter; T84.52XA Infection and inflammatory reaction due to internal left hip prosthesis, initial encounter; M96.840 Postprocedural hematoma of a musculoskeletal structure following a musculoskeletal system procedure
CPT/HCPCS: 80048; 85027; 85651; 86140

== ENCOUNTER → 2022-04-01 | Outpatient (CLI) | payer OTHER | END | disposition home or self-care (01) | LOC: LAB SHORT 17:07 | PROVIDERS: Internal Medicine Hematology & Oncology | DX: D50.0 Iron deficiency anemia secondary to blood loss (chronic) (principal); E53.8 Deficiency of other specified B group vitamins | CPT/HCPCS: 82607; 82728; 82746; 83540; 83550 ==

== ENCOUNTER 2022-04-06 01:06 | Day surgery (SDC) | payer OTHER | END 2022-04-06 16:25 | disposition home or self-care (01) | LOC: ATC 01:06 | DX: T84.54XA Infection and inflammatory reaction due to internal left knee prosthesis, initial encounter (principal); M96.840 Postprocedural hematoma of a musculoskeletal structure following a musculoskeletal system procedure | CPT/HCPCS: 99212 ==

== ENCOUNTER → 2022-04-12 | Outpatient (CLI) | payer OTHER ==
[2022-04-12 17:57] LABS: BASOPHILS ABSOLUTE AUTO 0.07 K/mm3 (0.00-0.23); BASOPHILS PERCENT AUTO 1 % (0-2); EOSINOPHILS ABSOLUTE AUTO 0.23 K/mm3 (0.00-0.68); EOSINOPHILS PERCENT AUTO 5 % (0-6); Hematocrit 28.5 % (33.0-51.0); Hemoglobin 8.5 g/dL (11.5-16.0); IMMATURE GRAN ABSOLUTE AUTO 0.01 K/mm3 (0.00-0.10); IMMATURE GRAN PERCENT AUTO 0 % (0-1); LYMPHOCYTES ABSOLUTE AUTO 2.12 K/mm3 (0.84-5.20); LYMPHOCYTES PERCENT AUTO 41 % (21-46); MONOCYTES ABSOLUTE AUTO 1.02 K/mm3 (0.16-1.47); MONOCYTES PERCENT AUTO 20 % (4-13); Mean Corpuscular HGB Conc 29.8 g/dL (31.5-36.5); Mean Corpuscular Volume 84 fL (80-100); Mean Platelet Volume 9.9 fL (9.1-12.4); NEUTROPHILS ABSOLUTE AUTO 1.68 K/mm3 (1.96-9.15); NEUTROPHILS PERCENT AUTO 33 % (41-73); Platelet Count 582 K/mm3 (150-400); RDW Coefficient Variation 19.7 % (11.7-14.2); RDW Standard Deviation 58.4 fL (35.1-46.3); White Blood Cell Count 5.13 K/mm3 (4.00-11.30)
[2022-04-12 20:11] LABS: C-REACTIVE PROTEIN, EXT RANGE <0.290 mg/dL (0.000-0.300)
[2022-04-12 20:22] LABS: Alanine Aminotransfer (ALT/SGP 39 U/L (12-78); Albumin, Blood 2.6 g/dL (3.4-5.0); Alk Phos 303 U/L (50-136); Anion Gap 5 mmol/L (6-16); Aspartate Aminotrans (AST/SGOT 39 U/L (12-37); Bilirubin, Total 0.1 mg/dL (0.1-1.0); Blood Urea Nitrogen 9 mg/dL (8-24); Bun/Creatinine Ratio 13.4 (12.0-20.0); CO2, Blood 29 mmol/L (21-32); Calcium, Blood 8.6 mg/dL (8.5-10.1); Chloride, Blood 104 mmol/L (98-108); Creatinine, Blood 0.67 mg/dL (0.40-1.00); Globulin, Blood 2.5 g/dL (2.2-4.0); Glomerular Filtration Rate 99 (60-); Glucose, Blood 72 mg/dL (70-99); Potassium, Blood 4.2 mmol/L (3.5-5.5); Sodium, Blood 138 mmol/L (136-145); Total Protein, Blood 5.1 g/dL (6.4-8.2)
== END | disposition home or self-care (01) ==
LOC: LAB 17:05 → LAB SHORT 17:05
PROVIDERS: Physician Assistant Surgical
DX: T84.52XD Infection and inflammatory reaction due to internal left hip prosthesis, subsequent encounter (principal)
CPT/HCPCS: 80053; 85025; 85651; 86140

== ENCOUNTER 2022-04-13 15:29 | Day surgery (SDC) | payer OTHER | END 2022-04-13 16:40 | disposition home or self-care (01) | LOC: ATC 15:29 | DX: T84.50XA Infection and inflammatory reaction due to unspecified internal joint prosthesis, initial encounter (principal); M96.840 Postprocedural hematoma of a musculoskeletal structure following a musculoskeletal system procedure; Y79.8 Miscellaneous orthopedic devices associated with adverse incidents, not elsewhere classified; E11.9 Type 2 diabetes mellitus without complications | CPT/HCPCS: 99212 ==

== ENCOUNTER 2022-04-20 00:16 | Day surgery (SDC) | payer OTHER | END 2022-04-20 16:03 | disposition home or self-care (01) | LOC: ATC 00:16 | DX: T84.50XA Infection and inflammatory reaction due to unspecified internal joint prosthesis, initial encounter (principal); M96.840 Postprocedural hematoma of a musculoskeletal structure following a musculoskeletal system procedure | CPT/HCPCS: 99211 ==

== ENCOUNTER 2022-04-27 00:42 | Day surgery (SDC) | payer OTHER ==
[2022-04-27] MEDS ORDERED: Amoxicillin875 MG PO (16:07)
[2022-04-27] MEDS ORDERED: HYDROCODONE-AC1 EA10 PO (16:08)
== END 2022-04-27 15:50 | disposition home or self-care (01) ==
LOC: ATC 00:42
DX: Z45.2 Encounter for adjustment and management of vascular access device (principal); T84.52XA Infection and inflammatory reaction due to internal left hip prosthesis, initial encounter; M96.840 Postprocedural hematoma of a musculoskeletal structure following a musculoskeletal system procedure
CPT/HCPCS: 99212

== ENCOUNTER 2022-05-24 01:10 | Day surgery (SDC) | payer OTHER ==
[~2022-05-24 01:10] MED LIST changes: +Amoxicillin875 MG PO; +HYDROCODONE-AC1 EA10 PO
== END 2022-05-24 22:57 | disposition home or self-care (01) ==
LOC: WOUND 01:10
DX: M96.840 Postprocedural hematoma of a musculoskeletal structure following a musculoskeletal system procedure (principal); Y83.8 Other surgical procedures as the cause of abnormal reaction of the patient, or of later complication, without mention of misadventure at the time of the procedure; L76.82 Other postprocedural complications of skin and subcutaneous tissue; E10.65 Type 1 diabetes mellitus with hyperglycemia; S71.002D Unspecified open wound, left hip, subsequent encounter; Z87.891 Personal history of nicotine dependence; I48.91 Unspecified atrial fibrillation
CPT/HCPCS: A9270; G0463

== ENCOUNTER 2022-05-31 00:40 | Day surgery (SDC) | payer OTHER | END 2022-05-31 22:45 | disposition home or self-care (01) | LOC: WOUND 00:40 | DX: T81.89XA Other complications of procedures, not elsewhere classified, initial encounter (principal); E10.65 Type 1 diabetes mellitus with hyperglycemia; M96.840 Postprocedural hematoma of a musculoskeletal structure following a musculoskeletal system procedure; S71.002D Unspecified open wound, left hip, subsequent encounter | CPT/HCPCS: G0463 ==

== ENCOUNTER 2022-06-10 02:46 | Day surgery (SDC) | payer OTHER | END 2022-06-10 22:53 | disposition home or self-care (01) | LOC: WOUND 02:46 | DX: T81.89XA Other complications of procedures, not elsewhere classified, initial encounter (principal); M96.840 Postprocedural hematoma of a musculoskeletal structure following a musculoskeletal system procedure; L76.82 Other postprocedural complications of skin and subcutaneous tissue; E10.65 Type 1 diabetes mellitus with hyperglycemia; S71.002D Unspecified open wound, left hip, subsequent encounter | CPT/HCPCS: A9270 ==

== ENCOUNTER 2022-06-30 02:22 | Day surgery (SDC) | payer OTHER | END 2022-06-30 22:57 | disposition home or self-care (01) | LOC: WOUND 02:22 | DX: T81.89XA Other complications of procedures, not elsewhere classified, initial encounter (principal); E10.65 Type 1 diabetes mellitus with hyperglycemia; L76.82 Other postprocedural complications of skin and subcutaneous tissue | CPT/HCPCS: A9270; G0463 ==

== ENCOUNTER 2022-08-06 02:55 | Day surgery (SDC) | payer OTHER | END 2022-08-08 22:45 | disposition home or self-care (01) | LOC: WOUND 02:55 | DX: S71.002D Unspecified open wound, left hip, subsequent encounter (principal); X58.XXXD Exposure to other specified factors, subsequent encounter; E10.622 Type 1 diabetes mellitus with other skin ulcer; M96.840 Postprocedural hematoma of a musculoskeletal structure following a musculoskeletal system procedure; L76.82 Other postprocedural complications of skin and subcutaneous tissue; E10.65 Type 1 diabetes mellitus with hyperglycemia | CPT/HCPCS: G0463 ==

== ENCOUNTER 2022-08-28 14:25 | Emergency (ER) | payer OTHER ==
[~2022-08-28] VITALS: Ht 162.6 cm; Wt 45.4 kg
[2022-08-28 14:27] VITALS: BP 125/75
[2022-08-28] MEDS ORDERED: Voltaren100 GM TOP (16:11)
[2022-08-28] MEDS ORDERED: LIDO700A20 TOP (16:11)
[2022-08-30] MEDS ORDERED: Voltaren100 GM TOP (09:58)
== END 2022-08-28 16:22 | disposition home or self-care (01) ==
LOC: ER 14:25
DX: S22.42XA Multiple fractures of ribs, left side, initial encounter for closed fracture (principal); M96.89 Other intraoperative and postprocedural complications and disorders of the musculoskeletal system; E10.9 Type 1 diabetes mellitus without complications; W18.30XA Fall on same level, unspecified, initial encounter; Y92.002 Bathroom of unspecified non-institutional (private) residence as the place of occurrence of the external cause; Z88.8 Allergy status to other drugs, medicaments and biological substances; Z79.4 Long term (current) use of insulin; Z96.642 Presence of left artificial hip joint; Y83.8 Other surgical procedures as the cause of abnormal reaction of the patient, or of later complication, without mention of misadventure at the time of the procedure
CPT/HCPCS: 71100; 73502

== ENCOUNTER 2022-09-24 01:42 | Day surgery (SDC) | payer OTHER ==
[~2022-09-24 01:42] MED LIST changes: +LIDO700A20 TOP; +Voltaren100 GM TOP
== END 2022-09-24 22:44 | disposition home or self-care (01) ==
LOC: WOUND 01:42
DX: S71.002D Unspecified open wound, left hip, subsequent encounter (principal); E10.622 Type 1 diabetes mellitus with other skin ulcer; L76.82 Other postprocedural complications of skin and subcutaneous tissue; E10.65 Type 1 diabetes mellitus with hyperglycemia; M96.840 Postprocedural hematoma of a musculoskeletal structure following a musculoskeletal system procedure
CPT/HCPCS: G0463

== ENCOUNTER 2022-10-15 03:19 | Day surgery (SDC) | payer OTHER | END 2022-10-15 22:51 | disposition home or self-care (01) | LOC: WOUND 03:19 | DX: S71.002D Unspecified open wound, left hip, subsequent encounter (principal); E10.622 Type 1 diabetes mellitus with other skin ulcer; M96.840 Postprocedural hematoma of a musculoskeletal structure following a musculoskeletal system procedure; L76.82 Other postprocedural complications of skin and subcutaneous tissue; E10.65 Type 1 diabetes mellitus with hyperglycemia | CPT/HCPCS: A9270 ==

== ENCOUNTER 2022-10-22 01:36 | Day surgery (SDC) | payer OTHER | END 2022-10-22 23:16 | disposition home or self-care (01) | LOC: WOUND 01:36 | DX: S71.002D Unspecified open wound, left hip, subsequent encounter (principal); E10.65 Type 1 diabetes mellitus with hyperglycemia; M96.840 Postprocedural hematoma of a musculoskeletal structure following a musculoskeletal system procedure; L76.82 Other postprocedural complications of skin and subcutaneous tissue; E10.622 Type 1 diabetes mellitus with other skin ulcer; X58.XXXD Exposure to other specified factors, subsequent encounter | CPT/HCPCS: G0463 ==

== ENCOUNTER 2022-10-29 01:00 | Day surgery (SDC) | payer OTHER | END 2022-10-29 22:55 | disposition home or self-care (01) | LOC: WOUND 01:00 | DX: S71.002D Unspecified open wound, left hip, subsequent encounter (principal); E10.622 Type 1 diabetes mellitus with other skin ulcer; M96.840 Postprocedural hematoma of a musculoskeletal structure following a musculoskeletal system procedure; L76.82 Other postprocedural complications of skin and subcutaneous tissue; E10.65 Type 1 diabetes mellitus with hyperglycemia | CPT/HCPCS: A9270 ==

== ENCOUNTER 2022-11-19 01:02 | Day surgery (SDC) | payer OTHER | END 2022-11-19 22:59 | disposition home or self-care (01) | LOC: WOUND 01:02 | DX: S71.002D Unspecified open wound, left hip, subsequent encounter (principal); E10.622 Type 1 diabetes mellitus with other skin ulcer; M96.840 Postprocedural hematoma of a musculoskeletal structure following a musculoskeletal system procedure; L76.82 Other postprocedural complications of skin and subcutaneous tissue; E10.65 Type 1 diabetes mellitus with hyperglycemia | CPT/HCPCS: A9270 ==

== ENCOUNTER 2022-12-03 00:55 | Day surgery (SDC) | payer OTHER | END 2022-12-03 22:50 | disposition home or self-care (01) | LOC: WOUND 00:55 | DX: S71.002D Unspecified open wound, left hip, subsequent encounter (principal); E10.622 Type 1 diabetes mellitus with other skin ulcer; E10.65 Type 1 diabetes mellitus with hyperglycemia | CPT/HCPCS: G0463 ==

== ENCOUNTER 2022-12-31 02:51 | Day surgery (SDC) | payer OTHER | END 2022-12-31 22:46 | disposition home or self-care (01) | LOC: WOUND 02:51 | DX: T81.31XD Disruption of external operation (surgical) wound, not elsewhere classified, subsequent encounter (principal); E10.622 Type 1 diabetes mellitus with other skin ulcer; E10.65 Type 1 diabetes mellitus with hyperglycemia; L76.82 Other postprocedural complications of skin and subcutaneous tissue; M96.840 Postprocedural hematoma of a musculoskeletal structure following a musculoskeletal system procedure; Y83.8 Other surgical procedures as the cause of abnormal reaction of the patient, or of later complication, without mention of misadventure at the time of the procedure | CPT/HCPCS: G0463 ==

== ENCOUNTER 2023-01-18 13:07 | Emergency (ER) | payer OTHER ==
[~2023-01-18] VITALS: Ht 162.6 cm; Wt 39.5 kg
[2023-01-18 14:20] LABS: BASOPHILS ABSOLUTE AUTO 0.03 K/mm3 (0.00-0.23); BASOPHILS PERCENT AUTO 0 % (0-2); EOSINOPHILS PERCENT AUTO 0 % (0-6); Hematocrit 48.2 % (33.0-51.0); Hemoglobin 15.6 g/dL (11.5-16.0); IMMATURE GRAN ABSOLUTE AUTO 0.04 K/mm3 (0.00-0.10); IMMATURE GRAN PERCENT AUTO 1 % (0-1); LYMPHOCYTES ABSOLUTE AUTO 1.37 K/mm3 (0.84-5.20); LYMPHOCYTES PERCENT AUTO 19 % (21-46); MONOCYTES ABSOLUTE AUTO 1.46 K/mm3 (0.16-1.47); MONOCYTES PERCENT AUTO 20 % (4-13); Mean Corpuscular HGB 31.4 pg (26.0-34.0); Mean Corpuscular HGB Conc 32.4 g/dL (31.5-36.5); Mean Corpuscular Volume 97 fL (80-100); Mean Platelet Volume 10.5 fL (9.1-12.4); NEUTROPHILS ABSOLUTE AUTO 4.36 K/mm3 (1.96-9.15); NEUTROPHILS PERCENT AUTO 60 % (41-73); Platelet Count 542 K/mm3 (150-400); RDW Coefficient Variation 13.2 % (11.7-14.2); RDW Standard Deviation 47.7 fL (35.1-46.3); Red Blood Cell Count 4.97 M/mm3 (3.80-5.20); White Blood Cell Count 7.26 K/mm3 (4.00-11.30)
[2023-01-18 14:57] LABS: Alanine Aminotransfer (ALT/SGP 25 U/L (12-78); Albumin/Globulin Ratio 0.5 (0.8-1.8); Alk Phos 236 U/L (50-136); Anion Gap Unable to Calculate mmol/L (6-16); Aspartate Aminotrans (AST/SGOT 18 U/L (12-37); Bilirubin, Total 0.6 mg/dL (0.1-1.0); Blood Urea Nitrogen 21 mg/dL (8-24); Bun/Creatinine Ratio 17.1 (12.0-20.0); CO2, Blood >45 mmol/L (21-32); Calcium, Blood 10.4 mg/dL (8.5-10.1); Chloride, Blood 82 mmol/L (98-108); Creatinine, Blood 1.23 mg/dL (0.40-1.00); Globulin, Blood 5.5 g/dL (2.2-4.0); Glomerular Filtration Rate 50 (60-); Glucose, Blood 235 mg/dL (70-99); Potassium, Blood 2.2 mmol/L (3.5-5.5); Sodium, Blood 144 mmol/L (136-145); Total Protein, Blood 8.5 g/dL (6.4-8.2)
[2023-01-18 15:32] LABS: Magnesium, Blood 2.3 mg/dL (1.6-2.4); Phosphorus, Blood 2.7 mg/dL (2.5-4.9)
[2023-01-18] MEDS ORDERED: PHENERGAN25 MG PR (16:49)
[2023-01-18 17:43] VITALS: BP 126/84
== END 2023-01-18 17:44 | disposition home or self-care (01) ==
LOC: ER 13:07
PROVIDERS: Emergency Medicine
DX: K86.1 Other chronic pancreatitis (principal); K52.9 Noninfective gastroenteritis and colitis, unspecified; E10.9 Type 1 diabetes mellitus without complications; E87.6 Hypokalemia; Z88.8 Allergy status to other drugs, medicaments and biological substances; Z79.4 Long term (current) use of insulin; Z79.899 Other long term (current) drug therapy
CPT/HCPCS: 74177; 80053; 83690; 83735; 84100; 85025; 93005; 93010; 96361; 96365-59; 96366; 96375; 99284-25; J0780; J1170; J2270; J2765; J3480; J7030; Q9967